=== PATIENT | male | born 1985 | race Caucasian/White ===

== ENCOUNTER 2017-02-10 16:36 | Emergency (ER) | payer OTHER ==
--- NOTE | 2017-02-10 17:07 | ED ---
General Adult HPI - General Chief complaint: Skin/Abscess/Foreign Body Stated complaint: Sweating/Male Time Seen by Provider: 02/10/17 16:57 Source: patient, RN notes reviewed Mode of arrival: ambulatory Limitations: no limitations - History of Present Illness Initial comments: 31-year-old male presenting for excessive sweating in the mornings in his groin area. States his been going on intermittently for the past 9 years. He states he has intermittent testicular pain from time to time as well. He states the pain tends to be worse after he has sexual intercourse. He denies any active testicular pain at this time. He denies any dysuria or hematuria. He denies any abdominal pain. He denies fevers or chills. He states he recently got insurance and has an appointment with his new PCP on 02/26/17, but wanted to make sure he didn't have any life threatening issues in the interim until this appointment. - Related Data Home Medications Medication Instructions Recorded Confirmed No Known Home Medications [No 02/10/17 02/10/17 Known Home Medications] Allergies Allergy/AdvReac Type Severity Reaction Status Date / Time No Known Allergies Allergy Verified 02/10/17 17:05 Review of Systems ROS Statement: Those systems with pertinent positive or pertinent negative responses have been documented in the HPI. ROS Other: All systems not noted in ROS Statement are negative. Past Medical History Past Medical History: No Reported History History of Any Multi-Drug Resistant Organisms: None Reported Past Surgical History: No Surgical Hx Reported Past Psychological History: No Psychological Hx Reported Smoking Status: Never smoker Past Alcohol Use History: Occasional Past Drug Use History: Marijuana General Exam - General Exam Comments Initial Comments: General: Awake and Alert. No acute distress. Does not appear acutely ill. Poor hygiene. Eyes: GUSTAVO, EOM intact. No nystagmus. No scleral icterus. HENT: Atraumatic, normocephalic. Mucous membranes moist. Trachea midline. Neck: The neck is supple, there is no tenderness or JVD. Cardiovascular: Regular rate and rhythm. No murmur, rub, or gallop is appreciated. Distal pulses intact. Respiratory: Lungs are clear to auscultation bilaterally. No wheezes, rales, rhonchi. No respiratory distress. Gastrointestinal: Soft, Nontender. No rebound or guarding. Non-distended. No masses or organomegaly noted. No CVA tenderness. Genitourinary: Circumcised penis with evidence of molluscum rash. No other lesions appreciated. There is no testicular tenderness on exam. Normal cremasteric reflex. No hemorrhoids on external rectal exam. There are no fissures. Musculoskeletal: No tenderness. Normal ROM. No gross deformity. No strength deficits. Neurological: A&Ox3. CN II-XII grossly intact, There are no obvious motor or sensory deficits. Coordination appears grossly intact. Speech is normal. Skin: Skin is warm and dry and no rashes or lesions are noted. Psychiatric: Cooperative, appropriate mood & affect, normal judgment. Limitations: no limitations Course Vital Signs 02/10/17 02/10/17 16:51 18:40 Temperature 99 F 98 F Pulse Rate 89 74 Respiratory 20 16 Rate Blood Pressure 135/85 145/84 O2 Sat by Pulse 97 98 Oximetry Medical Decision Making - Medical Decision Making 31-year-old male presenting for excessive groin sweating in the mornings. He states she's had this issue recurrently for the past 9 years. He also states he has testicular pain after he has sexual intercourse. He states she's had extensive workups in the past including ultrasounds and urology evaluation and has been told they are uncertain what his cause of pain is. He recently got insurance and states he has plan for follow-up with a new PCP on 02/26/2017, was concerned about life-threatening problems until this appointment. He denies any fevers or chills. He denies any abdominal pain. No testicular pain or tenderness on examination. UA was performed which showed sperm but no evidence of infection. Possible retrograde ejaculation given history but otherwise low suspicion of infectious etiology at this time. He denies concern for sexually transmitted disease at this time. Basic lab work was also performed grossly unremarkable. TSH is within normal limits. Patient was updated on his findings. Discussed close follow-up with his PCP P for further monitoring and evaluation and potential treatment. Discussed concerning signs and symptoms for immediate return to the ED. Patient is agreeable with plan of discharge home. - Lab Data Result diagrams: 02/10/17 17:12 02/10/17 17:12 Lab Results 02/10/17 02/10/17 02/10/17 Range/Units 17:12 17:12 17:12 WBC 10.2 (3.8-10.6) k/uL RBC 5.14 (4.30-5.90) m/uL Hgb 16.0 (13.0-17.5) gm/dL Hct 46.4 (39.0-53.0) % MCV 90.1 (80.0-100.0) fL MCH 31.0 (25.0-35.0) pg MCHC 34.4 (31.0-37.0) g/dL RDW 12.4 (11.5-15.5) % Plt Count 269 (150-450) k/uL Neutrophils % 61 % Lymphocytes % 28 % Monocytes % 5 % Eosinophils % 3 % Basophils % 1 % Neutrophils # 6.2 (1.3-7.7) k/uL Lymphocytes # 2.8 (1.0-4.8) k/uL Monocytes # 0.5 (0-1.0) k/uL Eosinophils # 0.3 (0-0.7) k/uL Basophils # 0.1 (0-0.2) k/uL Sodium 141 (137-145) mmol/L Potassium 4.1 (3.5-5.1) mmol/L Chloride 102 (98-107) mmol/L Carbon Dioxide 26 (22-30) mmol/L Anion Gap 13 mmol/L BUN 12 (9-20) mg/dL Creatinine 0.83 (0.66-1.25) mg/dL Est GFR (MDRD) Af Amer >60 (>60 ml/min/1.73 sqM) Est GFR (MDRD) Non-Af >60 (>60 ml/min/1.73 sqM) Glucose 102 H (74-99) mg/dL Calcium 9.9 (8.4-10.2) mg/dL TSH 1.500 (0.465-4.680) mIU/L Urine Color Yellow Urine Appearance Clear (Clear) Urine pH 5.5 (5.0-8.0) Ur Specific [place] 1.022 (1.001-1.035) Urine Protein Trace H (Negative) Urine Glucose (UA) Negative (Negative) Urine Ketones Trace H (Negative) Urine Blood Trace H (Negative) Urine Nitrite Negative (Negative) Urine Bilirubin Negative (Negative) Urine Urobilinogen <2.0 (<2.0) mg/dL Ur Leukocyte Esterase Negative (Negative) Urine RBC 1 (0-5) /hpf Urine WBC 1 (0-5) /hpf Amorphous Sediment Rare H (None) /hpf Urine Mucus Few H (None) /hpf Urine Sperm Occasional H (None) /hpf Disposition Clinical Impression: Mollusca contagiosa, Hyperhidrosis Disposition: HOME SELF-CARE Condition: Stable Instructions: Molluscum Contagiosum (ED), Jock Itch (ED) Additional Instructions: Please follow up with your regular doctor for further evaluation and testing. In the meantime, keep your groin area clean and dry. Please note that Molluscum is sexually transmittable to sexual partners. Referrals: None,Stated [Primary Care Provider] - 1-2 days Time of Disposition: 18:21
[2017-02-10 17:22] LABS: Basophils # (A) 0.1 k/uL (0-0.2); Basophils % (A) 1 %; CH 31.5; CHCM 35.1; Eosinophils # (A) 0.3 k/uL (0-0.7); Eosinophils % (A) 3 %; HCT 46.4 % (39.0-53.0); HDW 2.47; Luc # (Auto) 0.25; Luc % (Auto) 3; Lymphocytes # (A) 2.8 k/uL (1.0-4.8); Lymphocytes % (A) 28 %; MCHC 34.4 g/dL (31.0-37.0); MCV 90.1 fL (80.0-100.0); Monocytes # (A) 0.5 k/uL (0-1.0); Monocytes % (A) 5 %; Neutrophils # (A) 6.2 k/uL (1.3-7.7); Neutrophils % (A) 61 %; RBC 5.14 m/uL (4.30-5.90); RDW 12.4 % (11.5-15.5); WBC 10.2 k/uL (3.8-10.6); WBC (Perox) 10.33
[2017-02-10 17:24] LABS: Amorphous Sediment,Urine Rare /hpf; Appearance,Urine Clear (Clear); Bilirubin,Urine Negative (Negative); Glucose,Urine (UA) Negative (Negative); Ketones,Urine Trace (Negative); Leukocyte Esterase,Urine Negative (Negative); Mucus,Urine Few /hpf; Nitrite,Urine Negative (Negative); PH, Urine 5.5 (5.0-8.0); Particle Count 4775; Protein,Urine Trace (Negative); RBC,Urine 1 /hpf (0-5); Specific Gravity,Urine 1.022 (1.001-1.035); Sperm,Urine Occasional /hpf; UA Billing (MACRO vs. MICRO) MICRO; Urobilinogen,Urine <2.0 mg/dL (<2.0); WBC,Urine 1 /hpf (0-5)
[2017-02-10 17:32] LABS: Anion Gap 13 mmol/L; Blood Urea Nitrogen 12 mg/dL (9-20); Calcium 9.9 mg/dL (8.4-10.2); Carbon Dioxide 26 mmol/L (22-30); Chloride 102 mmol/L (98-107); Glucose 102 mg/dL (74-99); Non-African American GFR(MDRD) >60 (>60 ml/min/1.73 sqM); Potassium 4.1 mmol/L (3.5-5.1); Sodium 141 mmol/L (137-145)
[2017-02-10 18:41] VITALS: BP 145/84; PULSE 74; RESP 16; TEMP 98
== END 2017-02-10 18:42 | disposition home or self-care (01) ==
LOC: EC 16:36
DX: B08.1 Molluscum contagiosum (principal); R61 Generalized hyperhidrosis
CPT/HCPCS: 36415; 80048; 81001; 84443; 85025; 99283

== ENCOUNTER → 2017-03-08 | Outpatient (CLI) | payer OTHER ==
--- NOTE | 2017-03-08 08:49 | US ---
EXAMINATION TYPE: US scrotum with Doppler. Grayscale and color Doppler Duplex imaging performed of bartolome sepulveda scrotum. DATE OF EXAM: 03/08/2017 7:36 AM COMPARISON: 03/21/2010 ultrasound CLINICAL HISTORY: N50.82 Scrotal pain. Scrotal pain x 9 years; performs heavy lifting with job EXAM MEASUREMENTS: TESTICLES: Right Testicle: 3.8 x 3.3 x 2.1 cm Left Testicle: 6.0 x 2.8 x 3.7 cm EPIDIDYMIS HEAD: Right Epididymis: 0.8 x 1.2 x 0.7 cm Left Epididymis: 1.5 x 1.8 x 1.2 cm Doppler performed to assess for testicular vascularity; good bilateral color flow and waveforms are s een. There is no evidence of testicular torsion. Right Scrotum: multiple epididymal head cysts noted in upper portion with largest = 0.7 x 0.6 x 0.3c m; right testicular appendix is noted superiorly = 0.6 x 0.3 x 0.5cm; right testicular hyperechoic fo cus lower gland = 0.1 x 0.1 x 0.04cm; small fluid area noted superior scrotal sac = 0.3 x 0.9 x 1.1cm . Right testicle has mildly heterogeneous appearance. Left Scrotum: multiple epididymal head cysts with largest = 0.4 x 0.4 x 0.4cm; couple of hyperechoic foci in testicle with both ~ 0.1 x 0.1 x 0.1cm ; small fluid area 1.5 x 0.8 x 1.2cm mid lower scrotal sac. Presence of varicoceles: no IMPRESSION: 1. No suspicious change for hernia. 2. Bilateral epididymal cysts. 3. Findings are similar to the comparison study.
== END ==
LOC: RADUSWWP 06:57
PROVIDERS: ATTEND Internal Medicine
DX: N50.3 Cyst of epididymis (principal); N50.82 Scrotal pain
CPT/HCPCS: 76870; 93975

== ENCOUNTER 2017-06-17 08:19 | Emergency (ER) | payer OTHER ==
[2017-06-17 08:23] VITALS: BP 132/83; PULSE 73; RESP 20; TEMP 97.8
--- NOTE | 2017-06-17 08:40 | ED ---
General Adult HPI - General Chief complaint: Recheck/Abnormal Lab/Rx Stated complaint: excessive sweating Time Seen by Provider: 06/17/17 08:24 Source: patient, RN notes reviewed Mode of arrival: ambulatory Limitations: no limitations - History of Present Illness Initial comments: Patient is a 31-year-old male who presents emergency room today with chief complaint of excessive sweating over the last 6 months. Does admit that he went to his family doctor and have labs drawn. He states he was told that everything came back normal. He states he was advised to stop smoking marijuana. He states he still numbness and he still having the sweating. He states that the swelling is causing irritation to his buttock cheeks. He states he feels like skin rubbing is causing irritation burning type sensation. States worse when he is outside working began sweating. Patient states she's not been able to follow back up with his family doctor. He denies any other complaints or associated symptoms. Patient denies any recent fever, chills, shortness of breath, chest pain, back pain, abdominal pain, nausea or vomiting, numbness or tingling, dysuria or hematuria, constipation or diarrhea, headaches or visual changes, or any other complaints. - Related Data Home Medications Medication Instructions Recorded Confirmed No Known Home Medications [No 02/10/17 02/10/17 Known Home Medications] Allergies Allergy/AdvReac Type Severity Reaction Status Date / Time No Known Allergies Allergy Verified 06/17/17 08:23 Review of Systems ROS Statement: Those systems with pertinent positive or pertinent negative responses have been documented in the HPI. ROS Other: All systems not noted in ROS Statement are negative. Past Medical History Past Medical History: No Reported History History of Any Multi-Drug Resistant Organisms: None Reported Past Surgical History: No Surgical Hx Reported Past Psychological History: No Psychological Hx Reported Smoking Status: Never smoker Past Alcohol Use History: Occasional Past Drug Use History: Marijuana General Exam - General Exam Comments Initial Comments: General: The patient is awake and alert, in no distress, and does not appear acutely ill. Eye: Pupils are equal, round and reactive to light, extra-ocular movements are intact. No nystagmus. There is normal conjunctiva bilaterally. No signs of icterus. Ears, nose, mouth and throat: There are moist mucous membranes and no oral lesions. Neck: The neck is supple, there is no tenderness or JVD. Cardiovascular: There is a regular rate and rhythm. No murmur, rub or gallop is appreciated. Respiratory: Lungs are clear to auscultation, respirations are non-labored, breath sounds are equal. No wheezes, stridor, rales, or rhonchi. Musculoskeletal: Normal ROM, no tenderness. Strength 5/5. Sensation intact. Pulses equal bilaterally 2+. Neurological: A&O x 3. CN II-XII intact, There are no obvious motor or sensory deficits. Coordination appears grossly intact. Speech is normal. Skin: Skin is warm and dry and no rashes or lesions are noted. Psychiatric: Cooperative, appropriate mood & affect, normal judgment. : Normal external rectal exam. No sign of rash or skin breakdown. Limitations: no limitations Course Vital Signs 06/17/17 08:21 Temperature 97.8 F Pulse Rate 73 Respiratory 20 Rate Blood Pressure 132/83 O2 Sat by Pulse 99 Oximetry Medical Decision Making - Medical Decision Making Options were discussed with patient about lab work here in the emergency room. Patient states that he had labs obtained through his family doctor and everything came back negative. He states he was checked for multiple things and diseases. At this time patient is advised follow-up with his family doctor. Did discuss about some kind of barrier type cream to use to prevent chafing of the skin to decrease his irritation. Disposition Clinical Impression: Skin irritation Disposition: HOME SELF-CARE Condition: Good Additional Instructions: Please use baby powder, barrier cream, or "body glide" as discussed to decrease the skin irritation. Please follow the family doctor for further evaluation of excessive sweating as discussed. Referrals: None,Stated [Primary Care Provider] - 1-2 days Isreal Medrano MD [STAFF PHYSICIAN] - 1-2 days Time of Disposition: 08:39
== END 2017-06-17 08:49 | disposition home or self-care (01) ==
LOC: EC 08:19
DX: L98.9 Disorder of the skin and subcutaneous tissue, unspecified (principal)
CPT/HCPCS: 99283